=== PATIENT | female | born 1950 | race Caucasian/White ===

== ENCOUNTER → 2021-08-31 11:40 | Outpatient (CLI) | payer MEDICARE, OTHER, SELFPAY ==
--- NOTE | 2021-08-31 | DI.MRI.S_ITS ---
PROCEDURE: MR ANKLE LT WO CON INDICATIONS: LEFT ANKLE PAIN TECHNIQUE: Noncontrast sagittal T1 spin echo and T2 fast spin echo with fat saturation, axial proton density fast spin echo and T2 fast spin echo with fat saturation, coronal T1 spin echo and T2 fast spin echo with fat saturation through the ankle/hindfoot. COMPARISON: [facility] [place], CR, XR ANKLE 3 VIEWS WEIGHT BEARING LEFT, 08/03/2021, 10:13. FINDINGS: Image quality: Excellent. Bones and joints: Mild midfoot and hindfoot joint osteoarthritic changes are seen with joint space narrowing and mild subchondral sclerosis. No bone marrow contusions or fractures. No hindfoot coalitions. No osteochondral injuries of the talar dome. No pathologic joint effusions. Medial structures: The posterior tibialis, flexor digitorum longus, and flexor hallucis longus tendons are intact. The posterior tibial neurovascular bundle appears normal within the tarsal tunnel, without extrinsic mass effect. The deep layer (anterior and posterior tibiotalar ligaments) and superficial layer (tibionavicular, tibiospring, and tibiocalcaneal ligaments) of the deltoid ligament appear normal. The spring ligament components (superomedial calcaneonavicular, medioplantar oblique calcaneonavicular, and inferoplantar longitudinal ligaments) are intact. Lateral structures: The anterior talofibular, calcaneofibular, and posterior talofibular ligaments appear intact. More superiorly, the anterior and posterior tibiofibular ligaments appear intact, as is the intermalleolar ligament. The tibiofibular syndesmosis is normal in width at 2 mm or less. The peroneus longus and brevis tendons demonstrate normal location and morphology. Adjacent bony peroneal tubercle and retrotrochlear prominence are normal in size. The sinus tarsi demonstrates normal fatty signal, without edema, fibrosis, or cyst formation. Visualized sinus tarsi components (cervical ligament, interosseous talocalcaneal ligament, roots of the inferior extensor retinaculum) appear normal. The calcaneonavicular and calcaneocuboid components of the bifurcate ligament appear intact. The dorsal calcaneocuboid ligament appears intact. Anterior structures: The tibialis anterior, extensor hallucis longus, and extensor digitorum longus tendons appear intact. The dorsal talonavicular ligament appears intact. Posterior and plantar structures: Markedly thickened Achilles tendon is seen with intrasubstance linear T2 hyperintense signal. Medial and lateral bands of the plantar fascia are of normal thickness. No abductor digiti quinti muscle atrophy to suggest Bear neuropathy. IMPRESSION: 1. Tendinosis and low-grade intrasubstance partial-thickness tear involving Achilles tendon. No full-thickness Achilles tendon rupture. 2. Mild midfoot and hindfoot joint osteoarthritis. No fracture or dislocation. No osteochondral injury of talar dome. 3. Rest of the ankle tendons and ligaments are grossly intact. Dictated by: Arslan Streeter M.D. on 08/31/2021 at 13:01 Approved by: Arslan Streeter M.D. on 08/31/2021 at 13:15
== END ==
PROVIDERS: PCP Orthopaedic Surgery Foot and Ankle Surgery; Referring Provider Orthopaedic Surgery Foot and Ankle Surgery; Visit Provider Orthopaedic Surgery Foot and Ankle Surgery
DX: M67.88 Other specified disorders of synovium and tendon, other site (principal); S86.012A Strain of left Achilles tendon, initial encounter; M19.072 Primary osteoarthritis, left ankle and foot
CPT/HCPCS: 73721

== ENCOUNTER → 2021-09-07 14:39 | Outpatient (CLI) | payer MEDICARE, OTHER, SELFPAY ==
--- NOTE | 2021-09-07 14:42 | DI.CT.S_ITS ---
PROCEDURE: CT CHEST WO CON INDICATIONS: LOW DOSE LUNG SCREENING TECHNIQUE: Noncontrast 2.0-2.5 mm thick sections acquired from the pulmonary apices to the posterior costophrenic angles. 7 mm thick axial MIP, and 5 mm coronal and sagittal reformats were then acquired. A low radiation dose technique was utilized. COMPARISON: None. FINDINGS: Image quality: Diagnostic, given the low radiation dose technique. Lungs and pleura: Mild centrilobular emphysema. No suspicious nodules. Mediastinum: Heart size is normal. No pericardial effusion. Mild to moderate coronary artery calcifications. Left subclavian calcifications. No mediastinal adenopathy by size criteria. Thoracic aorta and central pulmonary arteries are normal in size. Dense atherosclerotic calcifications of the thoracic aorta. Esophagus is normal in caliber. No hiatal hernia. Bones and chest wall: No suspicious bony lesions. No vertebral body compression fractures. No axillary or supraclavicular adenopathy by size criteria. Thyroid gland is unremarkable as visualized. Abdomen: Visualized upper abdomen solid organs and bowel loops appear normal in the absence of contrast. IMPRESSION: 1. LungRads Category 1: Negative. No nodules and/or definitely benign nodules. 2. Annual followup low dose noncontrast CT of the chest is recommended for lung cancer screening 3. Clinically significant or potentially clinically significant findings (non-lung cancer): Mild centrilobular emphysema, coronary artery disease, ASCVD. Dictated by: Jairo Javier M.D. on 09/07/2021 at 16:55 Approved by: Jairo Javier M.D. on 09/07/2021 at 16:59
== END ==
PROVIDERS: PCP Nurse Practitioner Family; Referring Provider Nurse Practitioner Family; Visit Provider Nurse Practitioner Family
DX: Z12.2 Encounter for screening for malignant neoplasm of respiratory organs (principal); J43.2 Centrilobular emphysema; I25.10 Atherosclerotic heart disease of native coronary artery without angina pectoris
CPT/HCPCS: 71250

== ENCOUNTER 2022-11-22 15:25 | Outpatient (CLI) | payer MEDICARE, OTHER, SELFPAY ==
--- NOTE | 2022-11-22 15:25 | DI.RAD.S_ITS ---
PROCEDURE: PAIN SI JOINT INJECTION TRACI INDICATIONS: JOINT DYSFUNCTION COMPARISON: [facility], RG, XR SACRO ILIAC JOINTS, 04/03/2022, 17:36. FINDINGS: On these intraprocedural images, there is a spinal needle seen overlying the inferior aspect of each sacroiliac joint. Appropriate position of the tips of the needle was confirmed by injection of a small amount of iodinated contrast. IMPRESSION: Successful bilateral sacroiliac joint injection. Dictated by: Winston Kumari M.D. on 11/22/2022 at 18:13 Approved by: Winston Kumari M.D. on 11/22/2022 at 18:14
[2022-11-22 15:30] VITALS: BP 169/79; PULSE 82; RESP 18; TEMP 37.1; O2SAT 98
[2022-11-22 16:05] VITALS: BP 194/93; PULSE 84; RESP 20; O2SAT 98
[2022-11-22 16:10] VITALS: BP 185/86; PULSE 90; RESP 16; O2SAT 99
[2022-11-22] MEDS: IOPAMIDOL 15 ML VIAL 3 ML INJ (16:11)
[2022-11-22] MEDS: DEXAMETHASONE 10 MG/ML VIAL INJ (16:11)
[2022-11-22 16:15] VITALS: BP 191/86; PULSE 87; RESP 16; O2SAT 98
[2022-11-22 16:20] VITALS: BP 186/79; PULSE 88; RESP 15; O2SAT 98
[2022-11-22 16:25] VITALS: BP 171/74; PULSE 79; RESP 16; O2SAT 98
--- NOTE | 2022-11-22 16:47 | P.PCN_ITS ---
Date/Time/Diagnoses Date of procedure: 11/22/22 Time of procedure: 16:00 Procedure Notes Physician: Munir Nuno Total Fluoroscopy time (seconds): 13 Total sedation minutes: 0 Procedure in detail & Post-procedure care: Bilateral Sacroiliac Joint Injection Indications: Milagros is presenting for treatment of SI joint dysfunction with low back/buttock pain. Preoperative diagnosis: Bilateral SI joint dysfunction Postoperative diagnosis: Same Focused Examination: Ax3 Mood and affect are normal Vital Signs: VSS Consent: Following review of allergies and potential side effects/complications, including, but not necessarily limited to, infection, allergic reaction, local tissue breakdown, stroke, temporary or permanent nerve injury, paralysis, and possible , the patient indicated that they understood and agreed to proceed.? An informed consent document was signed by the patient, witnessed by a nurse and placed in the patient's chart.? Additionally, other treatment options including medications and physical therapy were reviewed with the patient. All questions were answered. Site was then marked. Anesthesia: Local Position: Prone Monitoring: NIBP, Pulse oximetry, 3 lead EKG Needle used: 22 ga, 3.5 inch spinal Contrast: 2 mL Isovue M-300 Injectate: Dexamethasone 7.5 mg with 1% lidocaine 2 mL per site Technique: The skin was prepped with chloraprep and then draped in a sterile fashion. Time out was performed as per protocol. Oxygen applied via NC. Skin and subcutaneous structures of the needle entry site was then infiltrated with 5 mL of lidocaine 1%. Under AP and lateral fluoroscopic control, the spinal needle wa s guided into the right sacroiliac joint. 1 mL contrast was injected and was consistent with intra-articular placement. There was no evidence for intravascular uptake. After negative aspiration, the above-mentioned injectate was then slowly administered and the needle withdrawn. The patient expressed no unusual discomfort or paresthesias during the injection. Skin and subcutaneous structures of the needle entry site was then infiltrated with 5 mL of lidocaine 1%. Under AP and lateral fluoroscopic control, the spinal needle was guided into the left sacroiliac joint. 1 mL contrast was injected and was consistent with intra-articular placement. There was no evidence for intravascular uptake. After negative aspiration, the above-mentioned injectate was then slowly administered and the needle withdrawn. The patient expressed no unusual discomfort or paresthesias during the injection.Band-Aids applied to injection sites. EBL: less than 1 ml Complications: None Post Procedure: Patient was taken to the recovery and monitored. The patient was provided a Pain Log to continue to record the patient's response to the target- specific procedure prior to the patient's follow-up visit with the referring physician. Patient was stable upon discharge. Detailed post procedure instructions were provided. Patient was asked to call in the event of worsening pain, fever, weakness, numbness or bladder or bowel incontinence.
== END 2022-11-22 16:29 | disposition home or self-care (01) ==
PROVIDERS: PCP Nurse Practitioner Family; Referring Provider Anesthesiology; Visit Provider Anesthesiology
DX: M53.3 Sacrococcygeal disorders, not elsewhere classified (principal)
CPT/HCPCS: 27096; 77002; J1100

== ENCOUNTER → 2023-01-16 16:32 | Outpatient (CLI) | payer MEDICARE, OTHER, SELFPAY ==
--- NOTE | 2023-01-16 16:37 | DI.RAD.S_ITS ---
PROCEDURE: XR HAND RT MIN 3V INDICATIONS: Hand pain TECHNIQUE: 3 views of the hand(s) acquired. COMPARISON: None. FINDINGS: Bones: No fractures or dislocations. Carpal bones are normally aligned. No suspicious bony lesions. There is moderate to severe osteoarthritic degenerative change between the articulation of the scaphoid and trapezoid and trapezium. There is also mild osteoarthritic type degenerative change involving the DIP joints. Soft tissues: No suspicious soft tissue calcifications. IMPRESSION: 1. No evidence for acute osseous abnormality involving the right hand. 2. Moderate to severe osteoarthritic degenerative change involving the articulation between the scaphoid and trapezoid and trapezium. 3. Mild osteoarthritic type degenerative change involving the DIP joints. Dictated by: Harish Olivares M.D. on 01/16/2023 at 17:29 Approved by: Harish Olivares M.D. on 01/16/2023 at 17:31
--- NOTE | 2023-01-16 16:37 | DI.RAD.S_ITS ---
PROCEDURE: XR CERVICAL SPINE 4V OR 5V INDICATIONS: Neck pain TECHNIQUE: 7 views of the cervical spine acquired. COMPARISON: None. FINDINGS: Bones: No fractures or dislocations to the C7-T1 level oblique views demonstrates some mild to moderate bilateral neural foraminal stenosis present C3-C4, C4-5, and C5-C6. There is moderate degenerative disc disease present C4-5, C5-6, and C6-C7. Soft tissues: No prevertebral soft tissue swelling. IMPRESSION: 1. No evidence for acute osseous abnormality involving the cervical spine. 2. [id number] neural foraminal stenosis C3-4, C4-5, and C5-C6. If further evaluation for radicular symptoms are of clinical concern MRI of the cervical spine may be of further clinical value. 3. Moderate degenerative disc disease present C4-C5, C5-C6, and C6-C7. Dictated by: Harish Olivares M.D. on 01/16/2023 at 17:32 Approved by: Harish Olivares M.D. on 01/16/2023 at 17:35
== END ==
PROVIDERS: PCP Nurse Practitioner Family; Referring Provider Anesthesiology; Visit Provider Anesthesiology
DX: M48.02 Spinal stenosis, cervical region (principal); M50.321 Other cervical disc degeneration at C4-C5 level; M79.641 Pain in right hand; M54.50 Low back pain, unspecified; M53.3 Sacrococcygeal disorders, not elsewhere classified; G89.29 Other chronic pain
CPT/HCPCS: 72050; 73130; 99213

== ENCOUNTER → 2023-02-28 12:13 | Outpatient (CLI) | payer MEDICARE, OTHER, SELFPAY ==
--- NOTE | 2023-02-28 12:15 | DI.MRI.S_ITS ---
PROCEDURE: MR CERVICAL SPINE WO CON INDICATIONS: Cervical spondylosis, foraminal stenosis TECHNIQUE: Noncontrast sagittal T1 spin echo and T2 fast spin echo, sagittal STIR, foraminal oblique sagittal T2 fast spin echo, and axial gradient echo or T2 fast spin echo through the cervical spine. COMPARISON: None. FINDINGS: Image quality: Excellent. Alignment and Curvature: There is normal bony alignment. Bone Marrow: Marrow demonstrates normal overall signal. Spinal Cord: Visualized spinal cord has normal size and signal. No cerebellar tonsillar herniation. Paraspinous Soft Tissues: No paravertebral masses. Prevertebral soft tissues are normal in thickness. C2-C3: A central disc protrusion and ligamentum flavum hypertrophy cause moderate to severe central canal stenosis. C3-C4: No significant disc bulge. Uncovertebral hypertrophy causes mild bilateral foraminal stenosis. The central canal is patent. C4-C5: Disc space narrowing, disc osteophytes, and uncovertebral hypertrophy cause severe bilateral foraminal stenosis and moderate central canal stenosis. C5-C6: Disc space narrowing, disc osteophytes, and uncovertebral hypertrophy cause severe bilateral foraminal stenosis and moderate central canal stenosis. C6-C7: Disc space narrowing, disc osteophytes, and uncovertebral hypertrophy cause mild bilateral foraminal stenosis and moderate central canal stenosis. C7-T1: Disc space narrowing, disc osteophytes, and uncovertebral hypertrophy cause mild bilateral foraminal stenosis and moderate central canal stenosis. IMPRESSION: 1. Multilevel cervical spondylosis causing foraminal and central canal stenosis as detailed above. 2. No abnormal spinal cord signal. Dictated by: Regan Smith M.D. on 02/28/2023 at 14:27 Approved by: Regan Smith M.D. on 02/28/2023 at 14:31
== END ==
PROVIDERS: PCP Nurse Practitioner Family; Referring Provider Anesthesiology; Visit Provider Anesthesiology
DX: M47.812 Spondylosis without myelopathy or radiculopathy, cervical region (principal); M48.02 Spinal stenosis, cervical region; M54.2 Cervicalgia
CPT/HCPCS: 72141

== ENCOUNTER 2023-09-26 13:23 | Outpatient (CLI) | payer MEDICARE, OTHER, SELFPAY ==
[2023-09-26 13:58] VITALS: BP 140/63; PULSE 61; RESP 16; TEMP 36.8; O2SAT 96
--- NOTE | 2023-09-26 14:00 | DI.RAD.S_ITS ---
PROCEDURE: PAIN SI JOINT INJECTION INDICATIONS: Right SI joint injection COMPARISON: None. FINDINGS: Fluoroscopic spot filming was performed to verify placement of spinal needles at the SI joint level(s), as labeled on the films. Appropriate location(s) of the needle tip(s) was confirmed by injection of iodinated contrast. IMPRESSION: Fluoroscopic images of spinal needle at the right SI joint. Please see procedure report for details. Dictated by: Caity Mcfarland M.D. on 09/26/2023 at 16:56 Approved by: Caity Mcfarland M.D. on 09/26/2023 at 16:56
[2023-09-26 14:15] VITALS: BP 166/70; PULSE 67; RESP 18; O2SAT 97
[2023-09-26] MEDS: iopamidoL 15 ML VIAL 3 ML INJ (14:17)
[2023-09-26] MEDS: DEXAMETHASONE 10 MG/ML VIAL INJ (14:17)
[2023-09-26] MEDS: LIDOCAINE 1% (PF) 5 ML INJ (14:18)
[2023-09-26 14:20] VITALS: BP 147/70; PULSE 62; RESP 17; O2SAT 96
[2023-09-26 14:28] VITALS: BP 136/64; PULSE 63; RESP 16; O2SAT 96
--- NOTE | 2023-09-26 15:17 | P.PCN_ITS ---
Date/Time/Diagnoses Date of procedure: 09/26/23 Time of procedure: 14:00 Procedure Notes Physician: Munir Nuno Total Fluoroscopy time (seconds): 8 Total sedation minutes: 0 Procedure in detail & Post-procedure care: Right Sacroiliac Joint Injection Indications: Milagros is presenting for treatment of SI joint dysfunction with low back/buttock pain. Preoperative diagnosis: Right SI joint dysfunction Postoperative diagnosis: Same Focused Examination: Ax3 Mood and affect are normal Vital Signs: VSS Consent: Following review of allergies and potential side effects/complications, including, but not necessarily limited to, infection, allergic reaction, local tissue breakdown, stroke, temporary or permanent nerve injury, paralysis, and possible , the patient indicated that they understood and agreed to proceed.? An informed consent document was signed by the patient, witnessed by a nurse and placed in the patient's chart.? Additionally, other treatment options including medications and physical therapy were reviewed with the patient. All questions were answered. Site was then marked. Anesthesia: Local Position: Prone Monitoring: NIBP, Pulse oximetry, 3 lead EKG Needle used: 22 ga, 3.5 inch spinal Contrast: 2 mL Isovue M-300 Injectate: Dexamethasone 7.5 mg with 1% lidocaine 1 mL Technique: The skin was prepped with chloraprep and then draped in a sterile fashion. Time out was performed as per protocol. Oxygen applied via NC. Skin and subcutaneous structures of the needle entry site was then infiltrated with 5 mL of lidocaine 1%. Under AP and lateral fluoroscopic control, the spinal needle was guided into the right sacroiliac joint. 1 mL contrast was injected and was consistent with intra-articular placement. There was no evidence for intravascular uptake. After negative aspiration, the above-mentioned injectate was then slowly administered and the needle withdrawn. The patient expressed no unusual discomfort or paresthesias during the injection. EBL: less than 1 ml Complications: None Post Procedure: Patient was taken to the recovery and monitored. The patient was provided a Pain Log to continue to record the patient's response to the target- specific procedure prior to the patient's follow-up visit with the referring physician. Patient was stable upon discharge. Detailed post procedure instructions were provided. Patient was asked to call in the event of worsening pain, fever, weakness, numbness or bladder or bowel incontinence.
== END 2023-09-26 14:35 | disposition home or self-care (01) ==
PROVIDERS: PCP Nurse Practitioner Family; Referring Provider Anesthesiology; Visit Provider Anesthesiology
DX: M53.3 Sacrococcygeal disorders, not elsewhere classified (principal)
CPT/HCPCS: 27096; J1100

== ENCOUNTER → 2023-10-31 13:31 | Outpatient (CLI) | payer MEDICARE, OTHER, SELFPAY ==
--- NOTE | 2023-10-31 13:32 | DI.MRI.S_ITS ---
PROCEDURE: MR LUMBAR SPINE WO CON INDICATIONS: Chronic low back pain TECHNIQUE: Noncontrast sagittal T1 spin echo and T2 fast echo, sagittal STIR, and T2 fast spin echo through the lumbar spine. In cases with scoliosis, additional coronal T2 fast spin echo may be performed. COMPARISON: None. FINDINGS: Image quality: Excellent. Alignment and Curvature: There is normal bony alignment. Bone Marrow: Marrow is of normal overall signal. No acute vertebral body compression fractures. Spinal Cord: Conus medullaris terminates at the L1 level. Visualized cord demonstrates normal signal and size. Paraspinous Soft Tissues: No paravertebral masses. T12-L1: Normal appearance. L1-L2: Normal appearance. L2-L3: Normal appearance. L3-L4: Mild arthropathy. No stenosis. L4-L5: Mild arthropathy. No stenosis. L5-S1: Mild disc bulge. Mild arthropathy. Mild bilateral foraminal stenosis. No central stenosis IMPRESSION: Mild degenerative disc disease and arthropathy without significant stenosis Approved by: Gamaliel Galicia M.D. on 11/01/2023 at 15:08
== END ==
LOC: MRI 13:32
PROVIDERS: PCP Nurse Practitioner Family; Referring Provider Anesthesiology; Visit Provider Anesthesiology
DX: M47.816 Spondylosis without myelopathy or radiculopathy, lumbar region (principal); M47.817 Spondylosis without myelopathy or radiculopathy, lumbosacral region; M51.37 Other intervertebral disc degeneration, lumbosacral region; M54.50 Low back pain, unspecified
CPT/HCPCS: 72148

== ENCOUNTER → 2024-04-21 08:29 | Outpatient (CLI) | payer MEDICARE, OTHER, SELFPAY ==
[2024-04-22 19:07] LABS: Fecal Immunochemical Test Negative (Negative)
== END ==
PROVIDERS: PCP Family Medicine; Referring Provider Family Medicine; Visit Provider Family Medicine
DX: Z12.11 Encounter for screening for malignant neoplasm of colon (principal)
CPT/HCPCS: 82274

== ENCOUNTER → 2024-09-24 11:56 | Outpatient (CLI) | payer MEDICARE, OTHER, SELFPAY ==
--- NOTE | 2024-09-24 11:58 | DI.RAD.S_ITS ---
PROCEDURE: XR HIP W PEL IF DONE RT 2V INDICATIONS: SI joint and hip pain TECHNIQUE: AP pelvis with lateral view(s) of the right hip(s). COMPARISON: None. FINDINGS: Bones: There are no osseous abnormalities. SI and hip joints: Normal in width and alignment without arthritic change. Moderate L5-S1 degenerative disc facet disease Soft tissues: No soft tissue swelling, calcification or mass. IMPRESSION: Normal pelvis Moderate L5-S1 degenerative disc facet disease Dictated by: Duy Marx M.D. on 09/25/2024 at 10:30 Approved by: Duy Marx M.D. on 09/25/2024 at 10:31
== END ==
PROVIDERS: PCP Family Medicine; Referring Provider Family Medicine; Visit Provider Family Medicine
DX: M47.817 Spondylosis without myelopathy or radiculopathy, lumbosacral region (principal); M25.559 Pain in unspecified hip
CPT/HCPCS: 73502